=== PATIENT | female | born 1990 | race American Indian/Alaskan Native ===

== ENCOUNTER 2017-04-29 11:22 | Emergency (ER) | payer MEDICAID ==
[2017-04-29 12:41] LABS: Basophils % (Auto) 0.7 % (0.0-1.8); Eosinophils % (Auto) 1.8 % (0.0-4.3); Hematocrit 44.9 % (30.3-42.9); Hemoglobin 14.6 gm/dl (10.1-14.3); Mean Corpuscular HGB Conc 33 % (30-34); Mean Corpuscular Hemoglobin 29 pg (28-32); Mean Corpuscular Volume 88 fl (79-97); Platelet Count 79 K/mm3 (140-440); Red Blood Count 5.11 M/mm3 (3.65-5.03); Red Cell Distribution Width 14.1 % (13.2-15.2); White Blood Count 6.2 K/mm3 (4.5-11.0)
[2017-04-29 13:04] LABS: Bilirubin,Urine NEG (Negative); Blood,Urine NEG (Negative); Ketones,Urine NEG (Negative); Leukocyte Esterase,Urine NEG (Negative); Mucus,Urine FEW /HPF; Nitrite,Urine NEG (Negative); Urobilinogen,Urine < 2.0 mg/dL (<2.0)
--- NOTE | 2017-04-29 14:11 | Emergency Department Report ---
ED Female HPI - General Chief complaint: Urogenital-Female Stated complaint: CERVICAL CANCER, PELVIC PAIN Time Seen by Provider: 04/29/17 13:45 Source: patient Mode of arrival: Ambulatory Limitations: No Limitations - History of Present Illness MD Complaint: vaginal bleeding, vaginal discharge -: Last night Location: suprapubic Severity: moderate Quality: cramping Worsens with: intercourse Are you Now?: No Associated Symptoms: vaginal discharge, vaginal bleeding, abdominal pain. denies: nausea/vomiting - Related Data Sexually active: Yes Previous Rx's Medication Instructions Recorded Last Taken Type metroNIDAZOLE [Metronidazole] 70 gm VG BID #6 gel.w.appl 04/29/17 Unknown Rx Allergies Allergy/AdvReac Type Severity Reaction Status Date / Time latex Allergy Rash Verified 04/29/17 12:05 ED Review of Systems ROS: Stated complaint: CERVICAL CANCER, PELVIC PAIN Other details as noted in HPI Comment: All other systems reviewed and negative Constitutional: denies: fever ENT: denies: throat pain, congestion Respiratory: denies: cough Cardiovascular: denies: chest pain Gastrointestinal: denies: nausea, hematemesis Genitourinary: discharge, dyspareunia. denies: urgency, dysuria, hematuria, abnormal menses Neurological: denies: headache ED Past Medical Hx - Past Medical History Previous Medical History?: No - Surgical History Additional Surgical History: X 2 - Social History Smoking Status: Never Smoker Substance Use Type: Marijuana - Medications Home Medications: Home Medications Medication Instructions Recorded Confirmed Last Taken Type metroNIDAZOLE [Metronidazole] 70 gm VG BID #6 gel.w.appl 04/29/17 Unknown Rx ED Physical Exam - General Limitations: No Limitations General appearance: alert, in no apparent distress - Head Head exam: Present: atraumatic - Neck Neck exam: Present: normal inspection - Respiratory Respiratory exam: Present: normal lung sounds bilaterally - Cardiovascular Cardiovascular Exam: Present: regular rate - GI/Abdominal GI/Abdominal exam: Present: soft. Absent: distended, tenderness, guarding - External exam: Present: normal external exam. Absent: erythema, swelling, lesions, lacerations, ecchymosis, bleeding Speculum exam: Present: normal speculum exam, vaginal discharge. Absent: cervical discharge, vaginal bleeding, foreign body, tissue, laceration Bi-manual exam: Present: normal bi-manual exam. Absent: cervical motion tendernes, adnexal tenderness, adnexal mass, uterine enlargement, uterine tenderness - Neurological Exam Neurological exam: Present: alert, oriented X3 - Psychiatric Psychiatric exam: Present: normal affect, normal mood - Skin Skin exam: Present: warm, dry ED Course Vital Signs 04/29/17 04/29/17 12:07 14:40 Temperature 97.5 F L Pulse Rate 90 Respiratory 17 17 Rate Blood Pressure 128/69 O2 Sat by Pulse 99 99 Oximetry ED Medical Decision Making - Lab Data Result diagrams: 04/29/17 12:32 Critical care attestation.: If time is entered above; I have spent that time in minutes in the direct care of this critically ill patient, excluding procedure time. ED Disposition Clinical Impression: Vaginal bleeding, BV (bacterial vaginosis) Disposition: - TO HOME OR SELFCARE Is pt being admited?: No Does the pt Need Aspirin: No Condition: Stable Instructions: Bacterial Vaginosis (ED) Prescriptions: metroNIDAZOLE [Metronidazole] 70 gm VG BID #6 gel.w.appl Forms: STI Treatment and Prevention
[2017-04-29 15:53] VITALS: BP 124/72
== END 2017-04-29 15:53 | disposition home or self-care (01) ==
LOC: ED 11:22
DX: N93.8 Other specified abnormal uterine and vaginal bleeding (principal); N76.0 Acute vaginitis; F12.10 Cannabis abuse, uncomplicated; Z91.040 Latex allergy status
CPT/HCPCS: 36415; 81001; 84703; 85025; 87210; 87591; 99284